=== PATIENT | female | born 1970 | race Asian ===

== ENCOUNTER 2020-05-29 16:18 | Emergency (ER) | payer OTHER ==
[~2020-05-29] VITALS: Ht 160 cm; Wt 80.7 kg
[2020-05-29 17:28] LABS: PLATELET COUNT 210 K/uL (152-353)
[2020-05-29 17:35] LABS: POTASSIUM 4.2 mmol/L (3.6-5.2)
[2020-05-29 19:15] VITALS: BP 162/83; TEMP 97.9
[2020-05-29] MEDS ORDERED: AMLODIPINE BESYLATE PO (22:08)
[2020-05-29] MEDS ORDERED: JUST TEARS IO (22:09)
[2020-05-29] MEDS ORDERED: BUSPIRONE HYDR7.5 MG PO (22:10)
[2020-05-29] MEDS ORDERED: CARBIDOPA/LEVOD1 TAB PO (22:14)
[2020-05-29] MEDS ORDERED: DOCU100C10 PO (22:14)
[2020-05-29] MEDS ORDERED: FERROUS SULF325 M1 PO (22:16)
[2020-05-29] MEDS ORDERED: DIVALPROEX250 MG PO (22:16)
[2020-05-29] MEDS ORDERED: FISH OIL1000 M1 PO (22:18)
[2020-05-29] MEDS ORDERED: GABA300C2 PO (22:18)
[2020-05-29] MEDS ORDERED: LEVO0.0218 PO (22:19)
[2020-05-29] MEDS ORDERED: MELATONIN3 MG PO (22:19)
[2020-05-29] MEDS ORDERED: MONISTAT SOOTHING1 % EX (22:22)
[2020-05-29] MEDS ORDERED: D325 MCG PO (22:22)
[2020-05-29] MEDS ORDERED: TYLENOL325 MG PO (22:27)
== END 2020-05-29 19:15 | disposition other institution (70) ==
LOC: ED 16:18
PROVIDERS: Family Medicine
DX: R46.89 Other symptoms and signs involving appearance and behavior (principal); F31.89 Other bipolar disorder; Z11.59 Encounter for screening for other viral diseases; Z04.6 Encounter for general psychiatric examination, requested by authority
CPT/HCPCS: 80053; 81000; 85027; 87635; 93005; 99283; 99285; U0003